=== PATIENT | female | born 1980 | race Two or more races ===

== ENCOUNTER 2019-11-07 08:00 | Outpatient (CLI) | payer OTHER ==
[~2019-11-07 08:00] MED LIST: [UNRECOGNIZED DRUG - REMARK]
== END 2019-11-07 12:20 | disposition home or self-care (01) ==
LOC: LAB 08:00 → ADM 11-08 09:00 → EDSTATUS 11-08 09:00
PROVIDERS: ATTEND Obstetrics & Gynecology
DX: R10.2 Pelvic and perineal pain (principal); N76.89 Other specified inflammation of vagina and vulva; Z20.828 Contact with and (suspected) exposure to other viral communicable diseases; N70.91 Salpingitis, unspecified